=== PATIENT | male | born 1970 | race Two or more races ===

== ENCOUNTER 2017-10-26 01:51 | Inpatient (IN) | payer OTHER ==
[~2017-10-26] VITALS: Ht 165.1 cm; Wt 88.9 kg
[2017-10-26 03:04] LABS: Basophils # (auto) 0.2 uL; Basophils % (auto) 1.2 % (0.0-2.0); Eosinophils # (auto) 0.2 uL; Hematocrit 50.4 % (41.0-53.0); Hemoglobin 16.7 g/dL (13.5-17.5); Lymphocytes % (auto) 11.6 % (10.0-50.0); Mean Corpuscular Hemoglobin 27.8 pg (28.0-32.0); Mean Corpuscular Hgb Conc. 33.1 g/dL (32.0-36.0); Mean Corpuscular Volume 84.1 fL (80.0-100.0); Monocytes # (auto) 1.2 uL; Monocytes % (auto) 7.1 % (0.0-12.0); Neutrophils # (auto) 13.4 uL; Neutrophils % (auto) 79.1 % (37.0-80.0); Nucleated Red Blood Cells % 0.1 %; Platelet Count (auto) 321 10^3/uL (140-450); Red Cell Distribution Width 13.6 % (11.8-14.3)
[2017-10-26 03:22] LABS: Alanine Aminotransferase 52 U/L (16-61); Albumin 3.7 g/dL (3.4-5.0); Anion Gap 11 (5-15); Aspartate Aminotransferase 31 U/L (15-37); BUN/Creatinine Ratio 12.9; Blood Alcohol < 3.0 mg/dL (0-5); Blood Urea Nitrogen 13 mg/dL (7-18); Calcium 8.5 mg/dL (8.5-10.1); Carbon Dioxide 23 mmol/L (21-32); Chloride 106 mmol/L (98-107); GFR African American 101 mL/min; GFR Non-African American 83 mL/min; Glucose 113 mg/dL (74-106); Phenytoin (Dilantin) 5.8 ug/mL (10-20); Potassium 3.8 mmol/L (3.5-5.1); Salicylate < 1.7 mg/dL (2.8-20.0); Sodium 140 mmol/L (136-145)
[2017-10-26 03:24] LABS: Alkaline Phosphatase 140 U/L (45-117); Bilirubin, Total 0.1 mg/dL (0.2-1.0); Total Protein 7.5 g/dL (6.4-8.2)
[2017-10-26 03:25] LABS: Acetaminophen < 2.0 ug/mL (10-30)
[2017-10-26] MEDS ORDERED: PHENYTOIN IV DILANTIN 1,000 MG in SODIUM CHL 0.9% 250 ML IV ONE (04:15)
[2017-10-26] MEDS ORDERED: LORazepam 2MG/ML-1ML VIAL IV ONE (04:30)
[2017-10-26] MEDS ORDERED: PHENYTOIN SODIUM 50 MG/ML 2ML VIAL IV ONE ×2 (05:10→05:13)
[2017-10-26 08:38] VITALS: BP 127/82
[2017-10-26] MEDS ORDERED: PHENYTOIN SODIUM 100 MG CAP PO ONE (10:00)
[2017-10-26] MEDS ORDERED: LORazepam 2MG/ML-1ML VIAL IV PRN (13:00)
[2017-10-26 13:51] VITALS: BP 123/73
[2017-10-26 13:58] VITALS: BP 127/82
[2017-10-26 17:15] VITALS: BP 120/81
[2017-10-26 20:00] VITALS: BP_SYST 140; BP_SYST 92; BP_DIAS 48; BP_DIAS 79
[2017-10-26 21:41] VITALS: BP 140/79
[2017-10-26] MEDS ORDERED: ACETAMINOPHEN 325 MG TAB PO PRN (21:45)
[2017-10-26] MEDS ORDERED: PHENYTOIN SODIUM 100 MG CAP PO SCH (22:00)
[2017-10-27 04:53] VITALS: BP 114/83
[2017-10-27 06:36] LABS: Basophils # (auto) 0.1 uL; Basophils % (auto) 0.7 % (0.0-2.0); Eosinophils # (auto) 0.4 uL; Eosinophils % (auto) 3.9 % (0.0-7.0); Hematocrit 47.6 % (41.0-53.0); Hemoglobin 16.1 g/dL (13.5-17.5); Lymphocytes % (auto) 25.8 % (10.0-50.0); Mean Corpuscular Hemoglobin 28.4 pg (28.0-32.0); Mean Corpuscular Hgb Conc. 33.7 g/dL (32.0-36.0); Mean Corpuscular Volume 84.3 fL (80.0-100.0); Monocytes # (auto) 1.2 uL; Monocytes % (auto) 10.7 % (0.0-12.0); Neutrophils # (auto) 6.8 uL; Neutrophils % (auto) 58.9 % (37.0-80.0); Nucleated Red Blood Cells % 0.2 %; Platelet Count (auto) 299 10^3/uL (140-450); Red Blood Cells 5.65 10^6/uL (4.5-5.90); Red Cell Distribution Width 13.3 % (11.8-14.3); White Blood Cell 11.6 10^3/uL (4.4-10.8)
[2017-10-27 08:00] VITALS: BP 119/58
[2017-10-27 09:00] VITALS: BP 119/58
[2017-10-27] MEDS ORDERED: PHE100C PO (12:57)
[2017-10-27 13:00] VITALS: BP 119/74
[2017-10-27 17:12] VITALS: BP 119/74
== END 2017-10-27 17:23 | DRG 101 ==
LOC: EDBD 01:51 → ER 02:00 → EEVIPCON 02:00 → OVERFLOW 02:01 → EAST 07:47
PROVIDERS: ADMIT Internal Medicine; ATTEND Internal Medicine
DX: G40.909 Epilepsy, unspecified, not intractable, without status epilepticus (principal)
CPT/HCPCS: 36415; 70450; 80053; 80185; 80320; 80329; 85025; 96365

== ENCOUNTER 2020-10-16 04:58 | Emergency (ER) | payer OTHER ==
[~2020-10-16] VITALS: Ht 170.2 cm; Wt 88.9 kg
[~2020-10-16 04:58] MED LIST: PHE100C PO
[2020-10-16 07:44] LABS: Albumin 3.3 g/dL (3.4-5.0); Anion Gap 5 (5-15); Blood Urea Nitrogen 16 mg/dL (7-18); Calcium 8.8 mg/dL (8.5-10.1); Carbon Dioxide 25 mmol/L (21-32); Chloride 108 mmol/L (98-107); Glucose 101 mg/dL (74-106); Potassium 4.3 mmol/L (3.5-5.1); Sodium 138 mmol/L (136-145)
[2020-10-16 07:51] LABS: Alanine Aminotransferase 44 U/L (16-61); Alkaline Phosphatase 139 U/L (45-117); Aspartate Aminotransferase 28 U/L (15-37); BUN/Creatinine Ratio 17.8; Bilirubin, Total 0.3 mg/dL (0.2-1.0); GFR African American 114 mL/min; GFR Non-African American 94 mL/min; Total Protein 7.8 g/dL (6.4-8.2)
[2020-10-16 07:52] LABS: Basophils # (auto) 0.1 10 ^3/uL (0-0.2); Basophils % (auto) 0.6 % (0.0-2.0); Eosinophils # (auto) 0.1 10 ^3/uL (0-0.8); Eosinophils % (auto) 0.9 % (0.0-7.0); Hematocrit 45.5 % (41.0-53.0); Hemoglobin 15.6 g/dL (13.5-17.5); Lymphocytes % (auto) 14.4 % (10.0-50.0); Mean Corpuscular Hemoglobin 28.7 pg (28.0-32.0); Mean Corpuscular Hgb Conc. 34.2 g/dL (32.0-36.0); Mean Corpuscular Volume 83.9 fL (80.0-100.0); Monocytes % (auto) 7.1 % (0.0-12.0); Neutrophils # (auto) 10.9 10 ^3/uL (1.6-8.6); Nucleated Red Blood Cells % 0.1 %; Red Blood Cells 5.42 10^6/uL (4.5-5.90); Red Cell Distribution Width 13.5 % (11.8-14.3); White Blood Cell 14.2 10^3/uL (4.4-10.8)
[2020-10-16 08:58] LABS: Urine Bacteria NONE SEEN /hpf (None Seen); Urine Blood Negative /uL (Negative); Urine Specific Gravity 1.021 (1.001-1.035); Urine Sperm PRESENT /hpf (None Seen); Urine WBC 1 /hpf (0 - 3)
[2020-10-16] MEDS ORDERED: HYDROcodone-ACET 10/325MG TAB PO ONE (10:00)
[2020-10-16 10:02] VITALS: BP 128/79
== END 2020-10-16 10:51 | disposition home or self-care (01) ==
LOC: ER 04:58 → EEVIPCON 04:58 → ER 10:51
DX: S09.8XXA Other specified injuries of head, initial encounter (principal); R51.9 Headache, unspecified; X58.XXXA Exposure to other specified factors, initial encounter; Y93.89 Activity, other specified; Y92.89 Other specified places as the place of occurrence of the external cause; Y99.8 Other external cause status
CPT/HCPCS: 36415; 70450; 71045; 80053; 81001; 84484; 85025